=== PATIENT | male | born 1980 | race Caucasian/White ===

== ENCOUNTER 2019-07-02 06:25 | Emergency (ER) | payer OTHER ==
[~2019-07-02] VITALS: Ht 180.3 cm; Wt 79.5 kg
[2019-07-02] MEDS ORDERED: SUCR1TAB56 (06:30)
[2019-07-02] MEDS ORDERED: PEPC10TA6 PO (06:30)
[2019-07-02 07:00] LABS: BASO % 0.7 % (0.0-1.0); EOS # 0.2 10^3/uL (0.0-0.5); EOS % 2.9 % (0.0-3.0); HEMATOCRIT 48.7 % (42.0-52.0); LYMPH # 1.5 10^3/uL (1.5-5.0); LYMPH % 27.7 % (24.0-44.0); MEAN CORPUSCULAR HEMOGLOBIN 30.6 pg (27.0-33.0); MEAN CORPUSCULAR HGB CONC 32.9 g/dl (32.0-36.5); MEAN CORPUSCULAR VOLUME 93.1 fl (80.0-96.0); MONO # 0.5 10^3/uL (0.0-0.8); MONO % 8.9 % (0.0-5.0); NEUTROPHILS # 3.3 10^3/uL (1.5-8.5); NEUTROPHILS % 59.6 % (36.0-66.0); PLATELET COUNT, AUTOMATED 265 10^3/uL (150-450); RED BLOOD COUNT 5.23 10^6/uL (4.30-6.10); WHITE BLOOD COUNT 5.5 10^3/uL (4.0-10.0)
[2019-07-02] MEDS ORDERED: GI COCKTAIL 50ML BTL(HYOSCYAMINE/MAALOX/LIDOCAINE VISCOUS)(1:3:1) PO ONE (07:15)
[2019-07-02 07:29] LABS: ALBUMIN 4.6 GM/DL (3.2-5.2); BILIRUBIN,DIRECT 0.1 MG/DL (0.0-0.2); BILIRUBIN,TOTAL 0.6 MG/DL (0.2-1.0); TOTAL PROTEIN 7.8 GM/DL (6.4-8.2)
[2019-07-02] MEDS ORDERED: PANTOPRAZOLE 40MG TAB (PROTONIX) PO ONE (07:30)
[2019-07-02] MEDS ORDERED: SUCR1SS PO (07:50)
[2019-07-02] MEDS ORDERED: SUCRALFATE SUSP 1GM/10ML UD PO ONE ×2 (08:00→09:15)
--- NOTE | 2019-07-02 08:44 | REP ---
Abdominal right upper quadrant ultrasound for abdominal right upper quadrant pain: There is no cholelithiasis, gallbladder wall thickening or pericholecystic fluid. There is no intrahepatic or extrahepatic biliary duct dilatation. The common biliary duct measures 2 mm in diameter. The hepatic parenchyma is homogeneous and otherwise unremarkable. The visualized areas of the pancreas are unremarkable. The right kidney measures 10.7 x 5.7 x 5.6 cm and is normal size. There is a 2.0 right renal cyst along its anterior margin. No solid masses identified. There is no hydronephrosis or calculus. There is no right upper quadrant ascites. Impression: There is no cholelithiasis or biliary duct dilatation. There is a right renal cortical cyst. Otherwise, negative abdominal right upper quadrant ultrasound. Electronically Signed by aSlo Kyle MD 07/02/2019 08:35 A
--- NOTE | 2019-07-02 09:15 | ED PDOC ---
Post-Departure Follow-Up radiology report faxed to Neda Fernandez MD Jul 02, 2019 09:15
[2019-07-02 09:25] VITALS: BP 124/86
--- NOTE | 2019-07-02 14:25 | ECGEPIP ---
[facility] - ED Test Date: 2019-07-02 Pat Name: MAILE ESTRADA Department: Room: - Gender: Male [employer]: TC : 1980 Requested By: Neda Grace Order Number: [id number] Reading MD: Neda Grace Measurements Intervals [place] Rate: 50 P: 59 UT: 153 QRS: 39 QRSD: 91 T: 21 QT: 395 QTc: 361 Interpretive Statements SINUS BRADYCARDIA No prior Electronically Signed on 07-02-2019 14:25:00 EST by Neda Grace
== END 2019-07-02 09:26 | disposition home or self-care (01) ==
LOC: M ED 06:25
DX: R10.13 Epigastric pain (principal); N28.1 Cyst of kidney, acquired; R00.1 Bradycardia, unspecified; Z79.899 Other long term (current) drug therapy

== ENCOUNTER → 2020-08-31 | Outpatient (CLI) | payer OTHER ==
[~2020-08-31] MED LIST: PEPC10TA6 PO; SUCR1SS PO; SUCR1TAB56
[2020-08-31 14:33] LABS: BLOOD UREA NITROGEN 18 MG/DL (7-18); CREATININE FOR GFR 1.19 MG/DL (0.70-1.30); GLOMERULAR FILTRATION RATE > 60.0 (>60)
== END ==
LOC: M WUC 09:59
PROVIDERS: ATTEND Physician Assistant
DX: M54.2 Cervicalgia (principal)